=== PATIENT | female | born 1990 | race Caucasian/White ===

== ENCOUNTER 2019-04-01 21:31 | Emergency (ER) | payer OTHER ==
[~2019-04-01] VITALS: Ht 167.6 cm; Wt 71.1 kg
[2019-04-01 21:34] VITALS: BP 125/83
[2019-04-01] MEDS ORDERED: ONDANSETRON ODT 8 MG PO STA (21:59)
[2019-04-01] MEDS ORDERED: KETOROLAC 30 MG/1 ML IM ONE (22:00)
[2019-04-01 22:09] LABS: MICROSCOPIC NOT IND
[2019-04-01 22:10] LABS: CULTURE INDICATED? NO
[2019-04-01 22:16] LABS: BASOPHILS # (AUTO) 0.04 x10^3/uL (0-0.1); BASOPHILS % (AUTO) 0 % (0-1); EOSINOPHILS # (AUTO) 0.21 x10^3/uL (0-0.4); EOSINOPHILS % (AUTO) 2 % (1-7); LYMPHOCYTES # (AUTO) 2.66 x10^3/uL (1-3.4); LYMPHOCYTES % (AUTO) 30 % (22-44); MD NO; MEAN CORPUSCULAR HEMOGLOBIN 28.4 pg (27.0-34.8); MEAN CORPUSCULAR HGB CONC 32.7 g/dL (32.4-35.8); MEAN CORPUSCULAR VOLUME 86.7 fL (80-100); MONOCYTES # (AUTO) 0.46 x10^3/uL (0.2-0.8); MONOCYTES % (AUTO) 5 % (2-9); NEUTROPHILS % (AUTO) 62 % (42-75); PLATELET COUNT 306 x10^3/uL (130-400); RED BLOOD COUNT 4.53 x10^6/uL (3.82-5.3); RED CELL DISTRIBUTION WIDTH 12.6 % (9.6-15.2)
[2019-04-01 22:28] LABS: ALANINE AMINOTRANSFERASE 19 U/L (12-78); ANION GAP 6 mmol/L (5-15); CALCIUM 8.8 mg/dL (8.5-10.1); CHLORIDE 109 mmol/L (98-107); CREATININE 0.76 mg/dL (0.55-1.02)
[2019-04-01] MEDS ORDERED: PLEASE ENTER ALLERGIES MC SCH (22:30)
[2019-04-01 22:31] LABS: ALKALINE PHOSPHATASE 76 U/L (45-117); BILIRUBIN,TOTAL 2.1 mg/dL (0.2-1.0); TOTAL PROTEIN 7.3 g/dL (6.4-8.2)
--- NOTE | 2019-04-02 01:05 | NUR ---
PT TO ROOM AT THIS TIME
--- NOTE | 2019-04-02 01:17 | NUR ---
PT REPORTS LOW ABDOMINAL PAIN STARTING YESTERDAY ALONG WITH MENSES, PT REPORT PAIN LIKE THIS BEFORE AFTER HAVING IUD PLACED IN JANUARY. PT ALSO HAD EMERGENCY IN JANUARY. PT DENIES OTHER C/O AT THIS TIME.
[2019-04-02] MEDS ORDERED: KETOROLAC 30 MG/1 ML ONE (01:23)
[2019-04-02] MEDS ORDERED: ONDANSETRON ODT 8 MG ONE (01:23)
[2019-04-02] MEDS ORDERED: ONDANSETRON 2MG/ML, 2ML ONE (01:29)
[2019-04-02] MEDS ORDERED: ONDANSETRON 2MG/ML, 2ML IVPush ONE (01:30)
[2019-04-02] MEDS ORDERED: KETOROLAC 30 MG/1 ML IVPush ONE (01:30)
--- NOTE | 2019-04-02 01:57 | NUR ---
PT REFUSED MEDICATIONS AND IMAGING SINCE SHE DID NOT WANT AN IV PALCED. ERP DISCUSSED REASON FOR INTERVENTIONS PT CONTINUED TO REFUSE.
== END 2019-04-02 01:59 | disposition home or self-care (01) ==
LOC: ED 04-02 01:53
DX: R10.2 Pelvic and perineal pain (principal)
CPT/HCPCS: 36415; 76830; 80053; 81003; 81025; 85025; 99284